=== PATIENT | male | born 1975 | race Caucasian/White ===

== ENCOUNTER 2021-02-08 14:48 | Emergency (ER) | payer BC, OTHER ==
[~2021-02-08] VITALS: Ht 193 cm; Wt 114.3 kg
[2021-02-08 15:38] LABS: BASOPHILS % (AUTO) 0 % (0-1); EOSINOPHILS % (AUTO) 2 % (1-7); LYMPHOCYTES % (AUTO) 22 % (22-44); MEAN CORPUSCULAR HEMOGLOBIN 32.8 pg (27.5-34.5); MEAN CORPUSCULAR HGB CONC 34.1 g/dL (33.2-36.2); MEAN PLATELET VOLUME 9.4 fL (7.4-10.4); MONOCYTES % (AUTO) 10 % (2-9); NEUTROPHILS % (AUTO) 67 % (42-75); PLATELET COUNT 230 x10^3/uL (130-400); RED BLOOD COUNT 5.81 x10^6/uL (4.38-5.82); RED CELL DISTRIBUTION WIDTH 13.9 % (9.4-14.8)
[2021-02-08 15:49] LABS: ALANINE AMINOTRANSFERASE 113 U/L (12-78); ALBUMIN 3.1 g/dL (3.4-5.0); ANION GAP 8 mmol/L (5-15); CALCIUM 9.2 mg/dL (8.5-10.1); CHLORIDE 106 mmol/L (98-107); CREATININE 1.51 mg/dL (0.7-1.3)
[2021-02-08 15:52] LABS: ALKALINE PHOSPHATASE 101 U/L (45-117); BILIRUBIN,TOTAL 0.9 mg/dL (0.2-1.0); TOTAL PROTEIN 7.3 g/dL (6.4-8.2)
--- NOTE | 2021-02-08 16:14 | NUR ---
BACK FACER: PT CALLED FOR ROOM, NO ANSWER
--- NOTE | 2021-02-08 16:17 | NUR ---
COMPUTER HELP DESK SPECIALIST: PT RETURN FROM RADIOLOGY. PT TO ROOM, STEPHANIE VICENTE
--- NOTE | 2021-02-08 16:33 | NUR ---
pt to room from lobby. HR 140-150s, SVT. EDT at bedside for EKG.
[2021-02-08] MEDS ORDERED: DILTIAZEM 5 MG/ML, 5ML IV ONE (17:00)
--- NOTE | 2021-02-08 17:10 | NUR ---
diltiazem not in ED pharmacy, requested from pharmacy.
[2021-02-08] MEDS ORDERED: DILTIAZEM 5 MG/ML, 5ML ONE ×2 (17:12→17:27)
--- NOTE | 2021-02-08 18:00 | NUR ---
Pt medicated per MAR, denies other needs.
[2021-02-08] MEDS ORDERED: DIGOXIN 0.25 MG/ML, 2ML ONE (19:18)
--- NOTE | 2021-02-08 19:20 | NUR ---
FIRST CONTACT WITH PTAdilene DONNELLY. HR A-FIB AND CONTROLLED @ 95BPM. AT BEDSIDE. WILL CONTINUE TO MONITOR.
[2021-02-08] MEDS ORDERED: DIGOXIN 0.25 MG/ML, 2ML IVPush ONE (19:30)
[2021-02-08] MEDS ORDERED: APIXABAN 5 MG TABLET PO ONE (19:44)
[2021-02-08] MEDS ORDERED: APIXABAN 5 MG TABLET ONE (20:05)
[2021-02-08 21:00] VITALS: BP 124/48
== END 2021-02-08 21:02 | disposition home or self-care (01) ==
LOC: ED 18:20
DX: U07.1 COVID-19 (principal); I48.91 Unspecified atrial fibrillation; M79.10 Myalgia, unspecified site
CPT/HCPCS: 36415; 74022; 80053; 83690; 85025; 93005; 96374; 96375; 99285; J1160; U0003; U0005

== ENCOUNTER 2021-02-11 11:13 | Emergency (ER) | payer BC ==
[~2021-02-11] VITALS: Ht 193 cm; Wt 109.6 kg
--- NOTE | 2021-02-11 11:47 | NUR ---
PT ON ALL ROOM MONITORING. PT FLUCTUATING FROM HR 40-120S ON MONITOR. PT DENIES CP, SOB. CALL LIGHT WITHIN REACH, WARM BLANKET OFFERED. ED MEDIC IN TO START IV. FAMILY AT BS.
[2021-02-11] MEDS ORDERED: DILTIAZEM 5 MG/ML, 5ML IVPush ONE (12:00)
[2021-02-11] MEDS ORDERED: DILTIAZEM 5 MG/ML, 5ML ONE (12:00)
[2021-02-11] MEDS ORDERED: SODIUM CHLORIDE FLUSH 10ML SYR IVF ONE (12:00)
--- NOTE | 2021-02-11 12:10 | NUR ---
PT MEDICATED PER ERP ORDER FOR RATE CONTROL. CONTINUE CLOSE MONITORING.
[2021-02-11 12:15] LABS: BASOPHILS % (AUTO) 0 % (0-1); EOSINOPHILS % (AUTO) 1 % (1-7); LYMPHOCYTES % (AUTO) 21 % (22-44); MEAN CORPUSCULAR HEMOGLOBIN 32.9 pg (27.5-34.5); MEAN CORPUSCULAR HGB CONC 34.1 g/dL (33.2-36.2); MEAN PLATELET VOLUME 9.6 fL (7.4-10.4); MONOCYTES % (AUTO) 11 % (2-9); NEUTROPHILS % (AUTO) 66 % (42-75); PLATELET COUNT 235 x10^3/uL (130-400); RED BLOOD COUNT 5.88 x10^6/uL (4.38-5.82)
[2021-02-11 12:24] LABS: CALCIUM 8.7 mg/dL (8.5-10.1); CHLORIDE 107 mmol/L (98-107); CREATININE 1.63 mg/dL (0.7-1.3)
[2021-02-11 12:27] LABS: TROPONIN I < 0.015 ng/mL (0.000-0.045)
[2021-02-11 12:33] LABS: ANION GAP 5 mmol/L (5-15)
--- NOTE | 2021-02-11 12:39 | NUR ---
LAB RESULTS BACK, VSS. PT FOR RECHECK.
[2021-02-11 13:35] VITALS: BP 102/61
== END 2021-02-11 13:37 | disposition home or self-care (01) ==
LOC: ED 12:23
DX: U07.1 COVID-19 (principal); I48.91 Unspecified atrial fibrillation; Z79.01 Long term (current) use of anticoagulants; I44.5 Left posterior fascicular block
CPT/HCPCS: 36415; 80048; 82040; 83735; 84484; 85025; 93005; 96374